=== PATIENT | female | born 1975 | race Caucasian/White ===

== ENCOUNTER 2016-09-03 14:41 | Emergency (ER) | payer BC ==
[~2016-09-03] VITALS: Ht 162.6 cm; Wt 68.0 kg
[~2016-09-03 14:41] MED LIST: IBUP600 PO; OXYC1SOL5 PO; PERI8.6T PO; PRENCAP6 PO
[2016-09-03 14:43] VITALS: BP 164/94; PULSE 68; RESP 14; TEMP 98; O2SAT 99
--- NOTE | 2016-09-03 15:16 | PD ---
HPI Chief Complaint: Related Problem Time Seen by Provider: 15:16 Travel History International Travel<30 days: No Contact w/Intl Traveler<30days: No Traveled to known affect area: No History of Present Illness HPI 41-year-old female came to the emergency room with history of possible ectopic . Patient has been seeing a fertility specialist and got however 2 weeks ago on the ultrasound it was noticed that the fetus did not have any heartbeat. Currently is measuring at 6 weeks in few days. However patient has been having some right sided abdominal pain. Her fertility specialist thinks she may have an ectopic and has sent her here for a second opinion. Patient does not seem to be any significant distress. She told me her blood group is A+. Her last beta hCG was done few days ago and was 46,000. She goes to see Dr. Qiu [facility] Past Medical History Narrative Medical List of his past medical, surgical, social and family history was reviewed from the nursing note. ?: LMP: 7 WEEKS Social History Tobacco Use: Yes Allergies-Medications (Allergen,Severity, Reaction): Coded Allergies: No Known Allergies (Unverified , 09/03/16) Comments No known drug allergies. Reported Meds & Prescriptions Reported Meds & Active Scripts Active Reported Synthroid (Levothyroxine Sodium) 75 Mcg Tab 75 Mcg PO DAILY Narrative Medication List of his home medication nursing Review of Systems Except as stated in HPI: all other systems reviewed are Neg Physical Exam Narrative GENERAL: Awake, alert, no obvious distress SKIN: Focused skin assessment warm/dry. HEAD: Atraumatic. Normocephalic. EYES: Pupils equal and round. No scleral icterus. No injection or drainage. ENT: No nasal bleeding or discharge. Mucous membranes pink and moist. NECK: Trachea midline. No JVD. CARDIOVASCULAR: Regular rate and rhythm. No murmur appreciated. RESPIRATORY: No accessory muscle use. Clear to auscultation. Breath sounds equal bilaterally. GASTROINTESTINAL: Abdomen soft, non-tender, nondistended. Hepatic and splenic margins not palpable. MUSCULOSKELETAL: No obvious deformities. No clubbing. No cyanosis. No edema. NEUROLOGICAL: Awake and alert. No obvious cranial nerve deficits. Motor grossly within normal limits. Normal speech. PSYCHIATRIC: Appropriate mood and affect; insight and judgment normal. Data Data Last Documented VS Vital Signs Date Time Temp Pulse Resp B/P Pulse Ox O2 Delivery O2 Flow Rate FiO2 7/21/17 14:43 98.0 68 14 164/94 99 Orders Ed Urine Pregnancytest Poc (09/03/16 15:27) Us Pelvis (Ques Pr/Ect)W Trans (09/03/16 ) MDM Medical Decision Making Medical Screen Exam Complete: Yes Emergency Medical Condition: Yes Medical Record Reviewed: Yes Differential Diagnosis Ectopic , missed , incomplete Narrative Course 3:58 PM awaiting for the ultrasound to be done and resulted. 4:[address] Qiu wanted to be called after the patient was evaluated which I did. As per him he had done the bedside ultrasound in his office and noticed a pole but the sac was in the right corner of the uterus and his concern was interstitial ectopic. He did not notice any heart beat which she should seek by this time. So he basically send the patient in for a second set of eyes to look at the ultrasound. Case will be signed over to the oncoming ER physician at 5 PM. She'll have to call him and discussed the plan based on the ultrasound report. Procedures EKG Prior to Arrival: Albert Patrick MD Sep 03, 2016 15:16
[2016-09-03] MEDS ORDERED: LEVO.075 PO (15:24)
--- NOTE | 2016-09-03 17:20 | PD ---
Physical Exam Narrative Received sign out from previous team to follow up on ultrasound results. This is a 41yo F who has been seeing fertility specialist Dr. Qiu and saw him this morning. Pt was sent here for a second ultrasound to rule out ectopic . On exam, abdomen is soft, NT/ND. No rebound tenderness or guarding. Pt has been having some vaginal spotting for [address] Qiu has been following on. US showed left cornual gestation. Probable demise. I discussed with Dr. Qiu and he said to have the patient follow up with him in her appointment on Tuesday. Pt informed of the ultrasound results. Pt has no abdominal pain right now and will return to the ED immediately if worsening symptoms. Data Data Last Documented VS Vital Signs Date Time Temp Pulse Resp B/P Pulse Ox O2 Delivery O2 Flow Rate FiO2 09/03/16 14:43 98.0 68 14 164/94 99 Orders Ua Includes Microscopic (09/03/16 15:27) Ed Urine Pregnancytest Poc (09/03/16 15:27) Us Pelvis (Ques Pr/Ect)W Trans (09/03/16 ) MDM Supervised Visit with HARSHAL: No Diagnosis Primary Impression: Cornual Patient Instructions: General Instructions Departure Forms: Tests/Procedures Additional Instruction: Please follow up with Dr. Qiu on your appointment time. Please return to the ED immediately if your symptoms worsen. Med/Other Pt SpecificInfo: No Change to Meds Disposition: 01 DISCHARGE HOME Condition: Stable HoffmannElliBeatrice DO Sep 03, 2016 17:20
--- NOTE | 2016-09-03 17:30 | RADRPT ---
EXAM DATE/TIME: 09/03/2016 16:26 [facility] COMPARISON: No previous studies available for comparison. INDICATIONS : Abnormal ultrasound at OB office. LAB(S): Beta-[facility]C on 08/30/16 MEDICAL HISTORY : . Hypothyroidism. SURGICAL HISTORY : section. ENCOUNTER: Initial ACUITY: 1 day PAIN SCORE: 0/10 LOCATION: Bilateral pelvis MEASUREMENTS: LEFT OVARY: 1.8 x 1.6 x 0.9 cm UTERUS: 9.9 x 5.7 x 5.2 cm ENDOMETRIAL STRIPE: 16 mm RIGHT OVARY: 3.4 x 2.3 x 2.1 cm FREE FLUID: No CROWN RUMP LENGTH: 0.49 cm = 6 WKS 1 DAYS FHR: Non visualized. BPM FINDINGS: UTERUS: A gestational sac is present which appears to be cornual in location on the left. A pole is pre sent with crown rump length of 4.9 mm yielding estimated age of 6 weeks one day however no cardiac ac tivity is detected. RIGHT OVARY: Ovary contains no mass or significant cystic lesion. LEFT OVARY: Ovary contains no mass or significant cystic lesion. MISCELLANEOUS: No free fluid. CONCLUSION: Left cornual gestation. Probable demise. Brown Lawrence MD on September 03, 2016 at 17:24 Board Certified Radiologist. This report was verified electronically.
== END 2016-09-03 19:29 | disposition home or self-care (01) ==
LOC: NEPD 14:41
DX: O00.80 Other ectopic pregnancy without intrauterine pregnancy (principal)
CPT/HCPCS: 76700; 76817; 84703